=== PATIENT | male | born 1940 | race Caucasian/White ===

== ENCOUNTER 2020-12-20 03:13 | Inpatient (IN) | payer MEDICARE, OTHER ==
[~2020-12-20] VITALS: Ht 177.8 cm; Wt 84.5 kg
--- NOTE | 2020-12-20 03:15 | NUR ---
AMBER 86 FROM [facility] FOR C/O LOW O2 SAT AND 2 EPISODES OF GROUND COFFEE EMESIS. O2 SAT OF 80s ON THE SCENE. PT ALERT TO SELF, GOWNED, PLACED ON MONITOR, +TACHY, PIV STARTED, BLOOD COLLECTED, PENDING ER PROVIDER ANNELIESE
[2020-12-20] MEDS ORDERED: IV NS 0.9% 500 ML BAG IV ONE (03:30)
[2020-12-20] MEDS ORDERED: PANTOPRAZOLE 40 MG VIAL IV ONE (03:30)
[2020-12-20] MEDS ORDERED: ONDANSETRON HCL/PF 4 MG/2 ML VIAL IVP ONE (03:30)
--- NOTE | 2020-12-20 03:38 | NUR ---
BLOOD OBTAINED AND SENT TO LAB
[2020-12-20] MEDS ORDERED: PANTOPRAZOLE 40 MG VIAL ONE (03:40)
[2020-12-20] MEDS ORDERED: ONDANSETRON HCL/PF 4 MG/2 ML VIAL ONE (03:41)
[2020-12-20] MEDS ORDERED: ACETAMINOPHEN 650 MG/SUPP.RECT RC ONE ×2 (03:44→04:00)
[2020-12-20 03:51] LABS: BASOPHILS # (AUTO) 0.1 /CMM (0.0-0.2); BASOPHILS % (AUTO) 0.2 % (0.0-2.0); EOSINOPHILS % (AUTO) 0.1 % (0.0-6.0); HEMATOCRIT 42 % (39-51); HEMOGLOBIN 13.3 g/dL (13.5-17.5); LYMPHOCYTES # (AUTO) 0.8 /CMM (0.8-4.8); LYMPHOCYTES % (AUTO) 3.8 % (20.0-44.0); MEAN CORPUSCULAR HGB CONC 31 g/dl (31.0-36.0); MEAN CORPUSCULAR VOLUME 94 fL (80-96); MONOCYTES # (AUTO) 0.5 /CMM (0.1-1.30); MONOCYTES % (AUTO) 2.2 % (2.0-12.0); NEUTROPHILS # (AUTO) 20.4 /CMM (1.8-8.9); NEUTROPHILS % (AUTO) 93.7 % (43.0-81.0); PLATELET COUNT (AUTO) 623 /CMM (150-450); RED BLOOD CELL COUNT(AUTO) 4.53 MIL/uL (4.5-6.0); WHITE BLOOD COUNT (AUTO) 21.8 K/uL (4.3-11.0)
[2020-12-20 04:00] LABS: OCCULT BLOOD STOOL POSITIVE (NEGATIVE)
[2020-12-20] MEDS ORDERED: IV NS 0.9% 1,000 ML BAG IV ONE ×2 (04:00→05:30)
[2020-12-20 04:01] LABS: CALCIUM, SERUM 9.6 mg/dL (8.5-10.1); CARBON DIOXIDE 29 mmol/L (21-32); CHLORIDE 99 mmol/L (98-107); GLUCOSE 144 mg/dL (74-106); POTASSIUM 5.6 mmol/L (3.5-5.1); SODIUM SERUM 139 mmol/L (136-145); UREA NITROGEN, BLOOD 26 mg/dL (7-18)
[2020-12-20] MEDS ORDERED: ATOR80TA GT (04:03)
[2020-12-20] MEDS ORDERED: ZINC220T4 PO (04:03)
[2020-12-20] MEDS ORDERED: SPIR25TA6 GT (04:03)
[2020-12-20] MEDS ORDERED: METO25TA6 GT (04:03)
[2020-12-20] MEDS ORDERED: ASPI-1169 GT (04:03)
[2020-12-20] MEDS ORDERED: SENN-18 GT (04:03)
[2020-12-20] MEDS ORDERED: DOCU-141 GT (04:03)
[2020-12-20 04:15] LABS: ALANINE AMINOTRANSFERASE 30 U/L (12-78); ALBUMIN 2.8 g/dL (3.4-5.0); ALKALINE PHOSPHATASE 88 U/L (46-116); ASPARTATE AMINOTRANSFERASE 33 U/L (15-37); BILIRUBIN,DIRECT 0.2 mg/dL (0.0-0.2); BILIRUBIN,TOTAL 0.7 mg/dL (0.2-1.0); TOTAL PROTEIN, SERUM 7.8 g/dL (6.4-8.2)
--- NOTE | 2020-12-20 04:15 | NUR ---
COVID SWAB SENT
--- NOTE | 2020-12-20 05:28 | NUR ---
URINE COLLECTED AND SENT TO LAB
--- NOTE | 2020-12-20 05:29 | NUR ---
DR. RAMIREZ PAGED PER CLEMENTE SANTORO ORDER.
--- NOTE | 2020-12-20 05:56 | NUR ---
DR. RAMIREZ PAGED PER CLEMENTE SANTORO ORDER.
[2020-12-20 06:02] LABS: BILIRUBIN,URINE NEGATIVE (NEGATIVE); COLOR,URINE DARK YELLOW (YELLOW); LEUKOCYTE ESTERASE ,URINE NEGATIVE (NEGATIVE); NITRITE, URINE NEGATIVE (NEGATIVE); PROTEIN,URINE 100 mg/dl (NEGATIVE); UGLUCOSE NEGATIVE (NEGATIVE); UROBILINOGEN,URINE 0.2 EU/dL (0.2)
--- NOTE | 2020-12-20 06:02 | NUR ---
ER SPOKE TO DR. RAMIREZ REGARDING PT ADMISSION.
[2020-12-20 06:07] LABS: RBC,URINE TOO NUMEROUS TO COUN /HPF (0-2); WBC,URINE TOO NUMEROUS TO COUN /HPF (0-3)
[2020-12-20 06:08] LABS: BACTERIA,URINE 3+ /HPF (None Seen); SQUAMOUS EPITHELIAL CELL,UR Moderate /HPF (None Seen); URINE AMORPHOUS URATE Few /HPF (None Seen)
--- NOTE | 2020-12-20 08:39 | NUR ---
Paged Dr Balbuena to report recent lactic acid level and ask for an antibiotic order.
--- NOTE | 2020-12-20 08:54 | NUR ---
Received bed from the medical supervisor Adelina. The patient going to 323-2.
[2020-12-20] MEDS ORDERED: NA P133E RC (08:58)
[2020-12-20] MEDS ORDERED: ACET325T53 GT (08:58)
[2020-12-20] MEDS ORDERED: BISA10SU11 RC (08:58)
[2020-12-20] MEDS ORDERED: MAGN400O6 GT (08:58)
[2020-12-20] MEDS ORDERED: LACT-96 GT (08:58)
[2020-12-20] MEDS ORDERED: CRAN425C6 GT (08:58)
--- NOTE | 2020-12-20 09:03 | NUR ---
Received call back from Dr Balbuena and made him aware of lactic acid level of 4.7 and informed him that barb patient has not received antibiotic yet. However, per Dr Balbuena no new orders.
--- NOTE | 2020-12-20 10:43 | NUR ---
Report given to NOA Hawkins from [facility]. The patient going to room 106.
--- NOTE | 2020-12-20 10:43 | NUR ---
RECEIVED REPORT FROM ACOSTA LATHAM IN ER FOR TALIB
[2020-12-20 12:00] VITALS: BP 102/77
[2020-12-20] MEDS ORDERED: IV D5/ 0.9% NACL 1,000 ML IV PRN (12:00)
[2020-12-20] MEDS ORDERED: PIPERACILLIN /TAZOBACTAM 3.375 G in IV D5W 50 ML IV ONE (13:00)
--- NOTE | 2020-12-20 13:30 | NUR ---
RN NOTE SPOKE WITH DR. RAMIREZ IN REGARDS TO DISCONTINUING [facility] MEDS, NEW ORDERS, AND NEW MEDICATIONS.
[2020-12-20] MEDS ORDERED: MAGNESIUM HYDROXIDE 30 ML UDC GT PRN (15:30)
[2020-12-20] MEDS ORDERED: BISACODYL SUPP (10 MG) 10 MG/SUPP.RECT SUPP.RECT RC PRN (15:30)
[2020-12-20] MEDS ORDERED: NA PHOS,M-B/NA PHOS,DI-BA 1 EA ENEMA RC PRN (15:30)
[2020-12-20 16:00] VITALS: BP 108/62
[2020-12-20] MEDS: IV NS 0.9% 1,000 ML IV PRN (16:05)
[2020-12-20] MEDS: CEFTRIAXONE 1 G in IV D5W 50 ML IV SCH (16:06)
[2020-12-20] MEDS: METOPROLOL TARTRATE 25 MG TABLET GT SCH (16:23)
[2020-12-20] MEDS: JEVITY 1.2 CAL 1,000 ML BOTTLE GT PRN (16:51)
--- NOTE | 2020-12-20 19:00 | NUR ---
RN NOTE RECEIVED PATIENT IN BED, CONFUSED, IN NO S/SX OF ACUTE DISTRESS AT THIS TIME. PATIENT'S BREATHING IS EVEN AND UNLABORED. PATIENT IS ON 4 L OF OXYGEN VIA NC, TOLERATING WELL, SATURATION AT 99%., SR WITH BBB ON THE MONITOR, HR IS 85. NOTED IV SITE AT RIGHT ANTECUBITAL 20 GAUGE, PATENT AND FLUSHING WELL,NO S/S OF INFECTION OR INFILTRATION, WITH IV FLUID OF NS INFUSING AT 75 ML/HR. NOTED GTUBE INTACT, PLACEMENT CHECKED BY ASPIRATION AND AUSCULTATION, NO RESIDUAL NOTED, WITH ONGOING TUBE FEEDING OF JEVITY 1.2 KEENAN AT 40 ML/HR. ON BILATERAL SOFT WRIST RESTRAINTS PER ORDERS, SKIN AND CIRCULATION WAS CHECKED. [place] CATH IN PLACE, MINIMAL OUTPUT NOTED. SAFETY MEASURES IMPLEMENTED. PATIENT BED ALARM IS ON. HEAD OF BED ELEVATED. BED IS LOCKED, IN LOWEST POSITION AND SIDE RAILS UP. CALL LIGHT WITHIN REACH OF THE PATIENT. WILL CONTINUE TO MONITOR AND REASSESS FOR ANY CHANGES.
--- NOTE | 2020-12-20 19:11 | NUR ---
RN CLOSING NOTE PATIENT IS IN BED WITH HOB AT SEMI FOWLERS POSITION. PATIENT IS CURRENTLY ON 4L NC WITH NO SIGNS OF LABORED BREATHING. PATIENT IS AOX0-1 AND RESTLESS. L FACE WOUND, BILATERAL HEEL WOUNDS HAVE DRESSINGS APPLIED. GTUBE IS IN PLACE WITH APPROPRIATE FEEDING RUNNING. RAC #20 IS PATENT, INTACT, AND HAS NO SIGNS OF INFILTRATION. BED IS LOCKED IN THE LOWEST POSITION, SUCTION EQUIPMENT AT BEDSIDE, CALL SANCHEZ WITHIN REACH, AND ALL HOSPITAL SAFETY PRECAUTIONS ARE BEING FOLLOWED. WILL ENDORSE TO FLOWER BUNCHER OR PICKER RN.
[2020-12-20 20:00] VITALS: BP 94/55
[2020-12-20] MEDS ORDERED: PIPERACILLIN /TAZOBACTAM 3.375 G in IV D5W 100 ML IV SCH (20:00)
[2020-12-20] MEDS: ACETAMINOPHEN 650 MG/20.3 ML UDC GT PRN (20:33)
[2020-12-20] MEDS: DOXYCYCLINE HYCLATE (100 MG) 100 MG TABLET PO SCH (21:21)
[2020-12-20] MEDS: SENNOSIDES 8.6 MG TABLET GT SCH (21:21)
[2020-12-20] MEDS: ATORVASTATIN 40 MG TABLET GT SCH (21:21)
[2020-12-21] VITALS: BP 94/46
[2020-12-21 04:00] VITALS: BP 103/51
[2020-12-21 06:32] LABS: BASOPHILS % (AUTO) 0.2 % (0.0-2.0); EOSINOPHILS % (AUTO) 0.3 % (0.0-6.0); HEMATOCRIT 31 % (39-51); HEMOGLOBIN 10.2 g/dL (13.5-17.5); LYMPHOCYTES # (AUTO) 0.7 /CMM (0.8-4.8); LYMPHOCYTES % (AUTO) 4.3 % (20.0-44.0); MEAN CORPUSCULAR HGB CONC 33 g/dl (31.0-36.0); MEAN CORPUSCULAR VOLUME 92 fL (80-96); MONOCYTES # (AUTO) 0.8 /CMM (0.1-1.30); MONOCYTES % (AUTO) 4.9 % (2.0-12.0); NEUTROPHILS # (AUTO) 14.8 /CMM (1.8-8.9); NEUTROPHILS % (AUTO) 90.3 % (43.0-81.0); PLATELET COUNT (AUTO) 358 /CMM (150-450); WHITE BLOOD COUNT (AUTO) 16.4 K/uL (4.3-11.0)
--- NOTE | 2020-12-21 07:30 | NUR ---
RN OPENING NOTES PATIENT PRESENT IN BED A/OX1, ANXIOUS, SCREAMING, CONFUSED,SR WITH BBB ON TELE-MONITOR, FACIAL DRESSING INTACT ON L SIDE, NPO STATUS ORDERED, R AC INTACT, FLUSHES WELL, G-TUBE IN PLACE, INTACT RUNNING JEVITY @ 40CC/HR, TOLERATING WELL, SAFETY MEASURES IN PLACE CALL HOB ELEVATED, WILL CONT TO MONITOR
[2020-12-21 07:48] LABS: CALCIUM, SERUM 8.9 mg/dL (8.5-10.1); CREATININE 0.8 mg/dL (0.6-1.3); MAGNESIUM 2.3 mg/dL (1.8-2.4); PHOSPHORUS 2.7 mg/dL (2.5-4.9); POTASSIUM 4.4 mmol/L (3.5-5.1)
[2020-12-21 08:00] VITALS: BP 100/72
[2020-12-21] MEDS: DOXYCYCLINE HYCLATE (100 MG) 100 MG TABLET PO SCH ×2 (09:28→22:54)
[2020-12-21] MEDS: METOPROLOL TARTRATE 25 MG TABLET GT SCH ×2 (09:28→17:00)
[2020-12-21] MEDS: PANTOPRAZOLE 40 MG VIAL IV SCH (09:29)
[2020-12-21] MEDS: IV NS 0.9% 1,000 ML IV PRN (10:20)
[2020-12-21 12:00] VITALS: BP 103/51
[2020-12-21] MEDS: CEFTRIAXONE 1 G in IV D5W 50 ML IV SCH (15:10)
[2020-12-21 16:00] VITALS: BP 109/46
--- NOTE | 2020-12-21 17:30 | NUR ---
RN NOTE PATIENT'S BP RUNS LOW, 109/46, CONTACTED , NOTIFIED, OK TO HOLD METOPROLOL
--- NOTE | 2020-12-21 18:26 | NUR ---
RN CLOSING NOTES NO ACUTE CHANGES THROUGH THE SHIFT, REMOVED DRESSINGS FROM FEET , MD WANTS TO SEE IT, OK TO KEEP OPEN TO AIR, COMFORT NEEDS ATTENDED, CLEANED AND REPOSITIONED, WILL ENDORSE TO PM SHIFT RN FOR TALIB
[2020-12-21] MEDS: JEVITY 1.2 CAL 1,000 ML BOTTLE GT PRN ×2 (19:18→19:20)
[2020-12-21 20:00] VITALS: BP 121/54
[2020-12-21] MEDS: SENNOSIDES 8.6 MG TABLET GT SCH (22:53)
[2020-12-21] MEDS: ATORVASTATIN 40 MG TABLET GT SCH (22:54)
[2020-12-21] MEDS: ACETAMINOPHEN 650 MG/20.3 ML UDC GT PRN (23:53)
[2020-12-22] VITALS (9 sets, daily range): BP systolic 91–150; BP diastolic 53–94
--- NOTE | 2020-12-22 05:32 | NUR ---
ENDING NOTES: CONFUSED AND UNCOOPERATVE SLEPT ON AND OFF THUR THE NIGHT AWAKENED EASILY WHEN NAME SPOKEN AND NEED TO BE REPOSITIONED MAX ASSIST 2 NURSES NEED TO TURN HIM SROM SIDE TO SIDE INCONTINENT UR FRQ. NO RESIDUALS VIA THE GT JEVITY 1.2 INFUSING 40 ML HR W/ PROBLEMS ON THE FACTORY MAINTENANCE TECHNICIAN HE SHOWS SR THRU THE NIGHT AM WT 187 LIBS
--- NOTE | 2020-12-22 07:05 | NUR ---
RN OPENING NOTES RECEIVED PT IN BED, A/OX1. CONFUSED. SR WITH BBB ON TELE-MONITOR. DRESSING INTACT ON L EAR. RAC #20 INTACT, PATENT AND FLUSHED. G-TUBE PLACEMENT CHECKED, RUNNING JEVITY 1.2 @40CC/HR, TOLERATING WELL. SAFETY MEASURES IN PLACE. CALL LIGHT WITHIN REACH. HOB ELEVATED. BED ALARM ON. WILL CONTINUE TO MONITOR.
[2020-12-22] MEDS: DOXYCYCLINE HYCLATE (100 MG) 100 MG TABLET PO SCH ×2 (08:39→21:27)
[2020-12-22] MEDS: PANTOPRAZOLE 40 MG VIAL IV SCH (08:39)
[2020-12-22] MEDS: METOPROLOL TARTRATE 25 MG TABLET GT SCH ×2 (08:40→16:17)
--- NOTE | 2020-12-22 10:00 | NUR ---
RN NOTES TRANSFERRED PT TO 3W ROOM 312-1. REPORT GIVEN TO NATHANIEL LATHAM FOR TALIB. PT IN STABLE CONDITION.
--- NOTE | 2020-12-22 10:05 | NUR ---
MS RN NOTE RECEIVED PATIENT FROM [facility]. PATIENT IS IN BED RESTING, IN NO ACUTE DISTRESS. PATIENT IS ON 4L OXYGEN ON NASAL CANNULA. TOLERATING WELL, NO SOB NOTED. PATIENT IS ON G-TUBE WITH JEVITY RUNNING AT 40ML/HR. PATIENT IS ON MEDICAL RESTRAINS. SAFETY PRECAUTIONS ARE ON. BED IS LOCKED IN THE LOWEST POSITION, WITH SIDE RAILS UP, CALL LIGHT WITHIN REACH. WILL CONTINUE TO MONITOR CLOSELY THROUGHOUT THE SHIFT.
[2020-12-22 13:56] LABS: BASOPHILS % (AUTO) 0.3 % (0.0-2.0); EOSINOPHILS % (AUTO) 0.4 % (0.0-6.0); HEMATOCRIT 31 % (39-51); LYMPHOCYTES # (AUTO) 0.3 /CMM (0.8-4.8); LYMPHOCYTES % (AUTO) 3.7 % (20.0-44.0); MEAN CORPUSCULAR HGB CONC 33 g/dl (31.0-36.0); MEAN CORPUSCULAR VOLUME 92 fL (80-96); MONOCYTES # (AUTO) 0.4 /CMM (0.1-1.30); MONOCYTES % (AUTO) 4.7 % (2.0-12.0); NEUTROPHILS # (AUTO) 8.5 /CMM (1.8-8.9); NEUTROPHILS % (AUTO) 90.9 % (43.0-81.0); PLATELET COUNT (AUTO) 300 /CMM (150-450); RED BLOOD CELL COUNT(AUTO) 3.35 MIL/uL (4.5-6.0); WHITE BLOOD COUNT (AUTO) 9.3 K/uL (4.3-11.0)
[2020-12-22] MEDS: CEFTRIAXONE 1 G in IV D5W 50 ML IV SCH (16:16)
--- NOTE | 2020-12-22 18:47 | NUR ---
MS RN CLOSING NOTE PATIENT IS IN BED RESTING, IN NO ACUTE DISTRESS. PATIENT IS ON 4L OXYGEN ON NASAL CANNULA. TOLERATING WELL, NO SOB NOTED. PATIENT IS ON G-TUBE WITH JEVITY RUNNING AT 40ML/HR. PATIENT IS ON MEDICAL RESTRAINS. PATIENT HAS A NEW IV SITE LEFT AC BENJAMIN 18. SAFETY PRECAUTIONS ARE ON. BED IS LOCKED IN THE LOWEST POSITION, WITH SIDE RAILS UP, CALL LIGHT WITHIN REACH. ENDORSE PATIENT TO ZONING ASSISTANT NURSE FOR TALIB.
--- NOTE | 2020-12-22 19:48 | NUR ---
MS NOA OPENING NOTES PATIENT A/OX1; NOTED WITH CONFUSION. ON O2 4LPM VIA N/C, TOLERATING WELL WITH NO SOB. DENIES PAIN OR DISCOMFORT AT THIS TIME. GTUBE PEG INTACT; ON JEVITY 1.2 @ 40ML/HR; TOLERATING FEEDINGS WELL. SOFT RESTRAINTS ON BILATERAL WRISTS FOR SAFETY; NO SKIN BREAKDOWN, GOOD CIRCULATION NOTED. IV #18G TO LAC; PATENT AND INTACT. SAFETY PRECAUTIONS IN PLACE: BED IN LOWEST LOCKED POSITION; SIDERAILS UPX2; CALL LIGHT WITHIN REACH. BED ALARMS ON. PATIENT MEDICALLY STABLE. Addendum: 12/23/20 at 0619 by DESIRE DIAZ RN UPDATE - NO SKIN BREAKDOWN TO BILATERAL WRISTS WITH SOFT RESTRAINTS. PATIENT NOTED WITH BILATERAL HEEL DTI, AND LESION TO LEFT CHEEK. WILL DO WOUND CARE ORDERED.
[2020-12-22] MEDS: SENNOSIDES 8.6 MG TABLET GT SCH (21:27)
[2020-12-22] MEDS: ATORVASTATIN 40 MG TABLET GT SCH (21:27)
[2020-12-23] MEDS: JEVITY 1.2 CAL 1,000 ML BOTTLE GT PRN (05:30)
--- NOTE | 2020-12-23 06:30 | NUR ---
MS RN CLOSING NOTES PATIENT A/OX1; NOTED WITH CONFUSION. ON O2 4LPM VIA N/C, TOLERATING WELL WITH NO SOB. DENIES PAIN OR DISCOMFORT AT THIS TIME. GTUBE PEG INTACT; ON JEVITY 1.2 @ 40ML/HR; TOLERATING FEEDINGS WELL. SOFT RESTRAINTS ON BILATERAL WRISTS FOR SAFETY; NO SKIN BREAKDOWN TO WRISTS, GOOD CIRCULATION NOTED. LESION TO LEFT CHECK, CHANGED DRESSING ORDERED; OFFLOADING BILATERAL HEELS. IV #18G TO LAC; PATENT AND INTACT. SAFETY PRECAUTIONS IN PLACE: BED IN LOWEST LOCKED POSITION; SIDERAILS UPX2; CALL LIGHT WITHIN REACH. BED ALARMS ON. PATIENT MEDICALLY STABLE. WILL ENDORSE TALIB TO ONCOMING MORNING RN.
--- NOTE | 2020-12-23 07:50 | NUR ---
MS RN OPENING NOTE PATIENT IS IN BED RESTING, IN NO ACUTE DISTRESS. PATIENT IS ON 4L OXYGEN ON NASAL CANNULA. TOLERATING WELL, NO SOB NOTED. PATIENT IS ON G-TUBE WITH JEVITY RUNNING AT 40ML/HR. PATIENT IS ON MEDICAL RESTRAINS. SAFETY PRECAUTIONS ARE ON. BED IS LOCKED IN THE LOWEST POSITION, WITH SIDE RAILS UP, CALL LIGHT WITHIN REACH. WILL CONTINUE TO MONITOR CLOSELY THROUGHOUT THE SHIFT.
[2020-12-23 08:00] VITALS: BP 148/71
[2020-12-23] MEDS: PANTOPRAZOLE 40 MG/PACK PACK GT SCH (09:45)
[2020-12-23] MEDS: DOXYCYCLINE HYCLATE (100 MG) 100 MG TABLET PO SCH (09:46)
[2020-12-23] MEDS: METOPROLOL TARTRATE 25 MG TABLET GT SCH ×2 (09:46→17:58)
[2020-12-23 10:00] VITALS: BP 140/71
--- NOTE | 2020-12-23 10:07 | NUR ---
WOUND CARE CONSULT: PT PRESENTS WITH NECROTIC HEEL WOUNDS, SACRAL SCAR AND LARGE RAISED LESION TO LEFT CHEEK, PRESENT ON ADMISSION. RECOMMEND SURGICAL AND DPM CONSULTS. DR ZHAO AND DR MEDINA NOTIFIED OF CONSULT REQUESTS. RECOMMENDATIONS MADE FOR SKIN PROTECTION. DISCUSSED WITH NURSING STAFF, COLOR CARD MAKER AND ROSSANA WIN, SURGICAL P.AClaudia FOLLOWING PT AT HIS FACILITY. DEFER TO DPM FOR LOWER EXTREMITIES. FIRST STEP LOW AIRLOSS MATTRESS ORDERED. MD IN AGREEMENT WITH PLAN OF CARE. Addendum: 12/23/20 at 1011 by ROBSON CARRERA WNDNU Amended: Links added.
[2020-12-23 16:00] VITALS: BP 147/74
--- NOTE | 2020-12-23 18:59 | NUR ---
MS RN CLOSING NOTE PATIENT IS IN BED RESTING, IN NO ACUTE DISTRESS. PATIENT IS ON 4L OXYGEN ON NASAL CANNULA. TOLERATING WELL, NO SOB NOTED. PATIENT IS ON G-TUBE WITH JEVITY RUNNING AT 40ML/HR. PATIENT IS ON MEDICAL RESTRAINS. WOUND CARE PERFORMED ORDERED.SAFETY PRECAUTIONS ARE ON. BED IS LOCKED IN THE LOWEST POSITION, WITH SIDE RAILS UP, CALL LIGHT WITHIN REACH. ENDORSE PATIENT TO CIRCLE SHEAR OPERATOR NURSE FOR TALIB.
--- NOTE | 2020-12-23 19:30 | NUR ---
MS RN OPENING NOTE RECEIVE PATIENT IN BED. A/OX2. ON OXYGEN 4L/MIN VIA NASAL CANNULA. RESPIRATIONS ARE EVEN AND UNLABORED. NO S/S SOB NOTED. NO C/O PAIN AT THIS TIME. IN NO APPARENT DISTRESS. IV ACCESS IN LAC #18 PATENT AND SALINE LOCKED. GTUBE IS PRESENT, NO RESIDUAL, FLUSHED WITH NO RESISTANCE. RUNNING JEVITY @40ML/HR. BILATERAL SOFT WRIST RESTRAINT PRESENT, NO REDNESS NOTED, ABLE TO PLACE FINGER IN RESTRAINT, GOOD CAP REFILL. BED IS LOW ND LOCKED, HOB ELEVATED IN SEMI FOWLERS, SIDE RAILS UP X3, KEENAN LIGHT WITHIN REACH. WILL CONTINUE TO MONITOR THROUGHOUT SHIFT.
[2020-12-23 20:00] VITALS: BP 150/74
[2020-12-23] MEDS: MEROPENEM 500 MG in IV NS 0.9% 50 ML IV SCH (20:49)
[2020-12-23] MEDS: SENNOSIDES 8.6 MG TABLET GT SCH (21:06)
[2020-12-23] MEDS: ATORVASTATIN 40 MG TABLET GT SCH (21:06)
--- NOTE | 2020-12-24 | NUR ---
MS ACCESS REP OF CARE NOTE REPORT GIVEN TO SARAH FOR TALIB. PATIENT RESTING IN BED. A/OX2. REMAINS ON OXYGEN 4L/MIN VIA NASAL CANNULA. NO RESP DISTRESS. NO C/O PAIN. NO DISTRESS. IV ACCESS MAINTAINED IN LAC #18. GTUBE RUNNING JEVITY @40ML/HR. BILATERAL SOFT WRIST RESTRAINT MAINTAINED WITH GOOD CIRCULATION. BED IS LOW ND LOCKED, HOB ELEVATED IN SEMI FOWLERS, SIDE RAILS UP X3, CALL LIGHT WITHIN REACH.
--- NOTE | 2020-12-24 00:05 | NUR ---
RN Ms opening notes Received Pt from NOA Dominguez. Pt is resting in bed comfortably. Pt is alert and orientedX1-2 with episode of confusion. Respiration is normal in 4 L NC with O2 sat is 96%. No SOB. No S/S of distress noted. IV site LAC# 18 is clean, intact and SL. Gtube feeding is intact and running jevity 1.2 @ 40 ml/hr. bilateral soft wrist are intact, skin is warm to touch and circulation is check Q 2 Hr. Safety precautions is maintained. Bed at low position, brakes locked, side rails upX3, hob elevated, and call light is within reach. Will continue to monitor.
[2020-12-24] MEDS: ACETAMINOPHEN 650 MG/20.3 ML UDC GT PRN (02:58)
[2020-12-24] MEDS: MEROPENEM 500 MG in IV NS 0.9% 50 ML IV SCH ×3 (04:13→21:15)
--- NOTE | 2020-12-24 07:00 | NUR ---
RN MS closing notes Pt is resting in bed comfortably. Pt is alert and orientedX1-2 with episode of confusion. Respiration is normal in 4 L NC with O2 sat is 96%. No SOB. No S/S of distress noted. VS is stable. Afebrile. Routine meds were given as ordered. IV site LAC# 18 is clean, intact and SL. Gtube feeding is intact and running jevity 1.2 @ 40 ml/hr with 0 residual. Pt tolerated well. Bilateral soft wrist are intact, skin is warm to touch and circulation is check Q 2 Hr. Wound care provided as ordered. Kept Pt clean, dry and comfortable. Safety precautions is maintained. Bed at low position, brakes locked, side rails upX3, hob elevated, and call light is within reach. Will endorse to morning nurse for TALIB.
[2020-12-24 07:49] LABS: CALCIUM, SERUM 8.6 mg/dL (8.5-10.1); CREATININE 0.7 mg/dL (0.6-1.3); POTASSIUM 5.2 mmol/L (3.5-5.1)
[2020-12-24 08:00] VITALS: BP 137/74
[2020-12-24] MEDS: METOPROLOL TARTRATE 25 MG TABLET GT SCH ×2 (10:16→16:42)
[2020-12-24] MEDS: PANTOPRAZOLE 40 MG/PACK PACK GT SCH (10:16)
[2020-12-24 16:00] VITALS: BP 146/83
[2020-12-24] MEDS: JEVITY 1.2 CAL 1,000 ML BOTTLE GT PRN (16:17)
--- NOTE | 2020-12-24 19:18 | NUR ---
MS RN CLOSING NOTE PATIENT IS IN BED RESTING, IN NO ACUTE DISTRESS. PATIENT IS ON 2L OXYGEN ON NASAL CANNULA. TOLERATING WELL, NO SOB NOTED. PATIENT IS ON G-TUBE WITH JEVITY RUNNING AT 60ML/HR. PATIENT IS ON MEDICAL RESTRAINS. WOUND CARE PERFORMED ORDERED. SAFETY PRECAUTIONS ARE ON. BED IS LOCKED IN THE LOWEST POSITION, WITH SIDE RAILS UP, CALL LIGHT WITHIN REACH. ENDORSE PATIENT TO SENIOR STOCK PLAN ADMINISTRATOR NURSE FOR TALIB.
--- NOTE | 2020-12-24 19:30 | NUR ---
MS/RN OPENING NOTES RECEIVED PATIENT IN BED RESTING. PATIENT IS ALERT AND ORIENTED X 1. PATIENT BREATHING IS EVEN AND UNLABORED. PATIENT SHOWS NO SIGNS OF SOB OR RESPIRATORY DISTRESS NOTED. PATIENT PLACED IN COMFORTABLE POSITION. IV ACCESS ON LAC INTACT FLUSHING WELL. PATIENT GTUBE FEEDING JEVITY AT 60 CC/HR, O ML RESIDUAL. SAFETY MEASURES ARE IN PLACE. BED IS LOCKED AND PLACED IN THE LOW POSITION. CALL LIGHT IS WITHIN REACH. WILL CONTINUE WITH PATIENT PLAN OF CARE.
[2020-12-24 21:07] VITALS: BP 158/86
[2020-12-24] MEDS: ATORVASTATIN 40 MG TABLET GT SCH (21:18)
[2020-12-24] MEDS: SENNOSIDES 8.6 MG TABLET GT SCH (21:18)
[2020-12-25] MEDS: MEROPENEM 500 MG in IV NS 0.9% 50 ML IV SCH ×2 (04:26→13:03)
--- NOTE | 2020-12-25 06:30 | NUR ---
MS/RN CLOSING NOTES PATIENT IN BED RESTING. PATIENT IS ALERT AND ORIENTED X 1. PATIENT BREATHING IS EVEN AND UNLABORED. PATIENT SHOWS NO SIGNS OF SOB OR RESPIRATORY DISTRESS NOTED. IV ACCESS ON LAC INTACT FLUSHING WELL. PATIENT G TUBE FEEDING JEVITY AT 60 CC/HR, O ML RESIDUAL. ALL NEEDS MET. SAFETY MEASURES ARE IN PLACE. BED IS LOCKED AND PLACED IN THE LOW POSITION. CALL LIGHT IS WITHIN REACH. WILL ENDORSE CARE TO DAY SHIFT NURSE.
--- NOTE | 2020-12-25 07:38 | NUR ---
MS/RN OPENING NOTES RECEIVED PATIENT IS ON BED. ALERT AND ORIENTED X 1. PATIENT IS ON OXYGEN 2 L SATURATING WELL. PATIENT IN NO APPARENT RESPIRATORY DISTRESS NOTED. WILL WEAN OXYGEN TO ROOM AIR. NO SIGN AND SYMPTOM OF PAIN NOTED AT THIS TIME. WILL CONTINUE TO MONITOR.
[2020-12-25 08:00] VITALS: BP 92/51
[2020-12-25 08:30] VITALS: BP 92/51
[2020-12-25] MEDS: METOPROLOL TARTRATE 25 MG TABLET GT SCH (08:30)
[2020-12-25] MEDS: PANTOPRAZOLE 40 MG/PACK PACK GT SCH (08:41)
--- NOTE | 2020-12-25 08:43 | NUR ---
MS/RN NOTES PATIENT IS ON ROOM AIR 97% PATIENT IN NO APPARENT DISTRESS NOTED. BP 92/51 P 65 METOPROLOL 25 MG 1 TAB GTUBE WAS NOT ADMINISTERED. WILL CONTINUE TO MONITOR.
--- NOTE | 2020-12-25 16:07 | NUR ---
MS/RN NOTES PATIENT ALERT AND ORIENTED X1. PATIENT IN ROOM AIR SATURATION 97%. PATIENT IN NO APPARENT RESPIRATORY DISTRESS NOTED. NO SIGN AND SYMPTOM OF PAIN NOTED AT THIS TIME. SEEN AND EXAMINED BY MD WITH ORDERS MADE AND CARRIED OUT. ALL DUE MEDICATIONS WAS GIVEN. REPORT WAS GIVEN TO ORLANDO LATHAM AT [facility]. PATIENT LEFT IN MEDICALLY STABLE CONDITION K [employer] BY 2 EMT VIA AMBULANCE. LATEST VITAL SIGN BP 118/58 P 85 TEMP 98 RR 18.
[2020-12-26] MEDS ORDERED: FUROSEMIDE 20 MG TABLET PO SCH (09:00)
== END 2020-12-25 16:05 | DRG 871 ==
LOC: ER 03:13 → TELE 09:09 → TELE1 09:46 → MEDSG1 12-22 09:35 → MED 12-22 09:57
PROVIDERS: ADMIT Internal Medicine; ATTEND Internal Medicine
DX: A41.9 Sepsis, unspecified organism (principal); J69.0 Pneumonitis due to inhalation of food and vomit; K92.2 Gastrointestinal hemorrhage, unspecified; N39.0 Urinary tract infection, site not specified; I13.0 Hypertensive heart and chronic kidney disease with heart failure and stage 1 through stage 4 chronic kidney disease, or unspecified chronic kidney disease; I50.22 Chronic systolic (congestive) heart failure; E87.2 Acidosis; Z16.12 Extended spectrum beta lactamase (ESBL) resistance; F09 Unspecified mental disorder due to known physiological condition; Z87.891 Personal history of nicotine dependence; Z86.73 Personal history of transient ischemic attack (TIA), and cerebral infarction without residual deficits; N18.9 Chronic kidney disease, unspecified; I25.10 Atherosclerotic heart disease of native coronary artery without angina pectoris; Z85.828 Personal history of other malignant neoplasm of skin; Z86.16 Personal history of COVID-19; F20.9 Schizophrenia, unspecified; E78.5 Hyperlipidemia, unspecified; G40.909 Epilepsy, unspecified, not intractable, without status epilepticus; F39 Unspecified mood [affective] disorder; F41.9 Anxiety disorder, unspecified; Z87.01 Personal history of pneumonia (recurrent); Z95.1 Presence of aortocoronary bypass graft; Z79.82 Long term (current) use of aspirin; Z79.899 Other long term (current) drug therapy; M20.42 Other hammer toe(s) (acquired), left foot; M20.41 Other hammer toe(s) (acquired), right foot; I71.4 Abdominal aortic aneurysm, without rupture; F03.90 Unspecified dementia, unspecified severity, without behavioral disturbance, psychotic disturbance, mood disturbance, and anxiety; Z93.1 Gastrostomy status; I73.9 Peripheral vascular disease, unspecified; L89.620 Pressure ulcer of left heel, unstageable; L89.610 Pressure ulcer of right heel, unstageable; C44.329 Squamous cell carcinoma of skin of other parts of face
CPT/HCPCS: 36415; 70450-TC; 70490-TC; 71045-TC; 71250-TC; 80048-TC; 80076-TC; 81001; 82272-TC; 83605-TC; 83735-TC; 83880; 84100-TC; 84484-TC; 85025-TC; 85730-TC; 86850-TC; 87040-TC; 87081-TC; 87086-TC; 87186-TC; A6253; A6403; C9113; C9803; G0378; J0696; J2185; J2405; J2543; J7030; J7040; J7060; U0003